=== PATIENT | female | born 1970 | race Hispanic/Latino ===

== ENCOUNTER 2023-12-02 06:33 | Day surgery (SDC) | payer OTHER, SELFPAY ==
--- NOTE | 2023-11-28 09:48 | PTCARENOTE ---
Michelle in Dr. Woody's office made aware of UCX result of beta hemolytic streptococcus, group B from 3/ that was resulted from lab [facility] and scanned.
[2023-12-02] VITALS (14 sets, daily range): BP systolic 77–142; BP diastolic 52–86; BMI 26.3
[2023-12-02 06:17] LABS: Glucose - Point of Care 104 mg/dl (70-99)
[2023-12-02 06:46] LABS: Mean Corp Hgb Conc. 33.3 g/dL (33.0-37.0); Mean Corpuscular Hgb 27.7 pg (27.0-31.0); Mean Corpuscular Volume 83.1 fL (81.0-99.0); Mean Platelet Volume 11.3 fL (7.4-10.4); Platelet Count 186 10^3/uL (130-400); Red Blood Cell Count 3.97 10^6/uL (4.20-5.40); White Blood Cell Count 3.9 10^3/uL (4.8-10.8)
[2023-12-02 06:49] LABS: APTT 26.4 Sec (23.4-35.0); INR 1.08; PT 13.8 Sec (11.4-14.6)
[2023-12-02] MEDS: NORMOSOL-R 1000 IV (06:56)
[2023-12-02 07:09] LABS: ALT (SGPT) 226 U/L (0-35); AST (SGOT) 498 U/L (14-36); Alkaline Phosphatase 101 U/L (38-126); Blood Urea Nitrogen 17 mg/dl (7-17); Calcium 9.5 mg/dl (8.4-10.2); Carbon Dioxide 24 mmol/L (22-30); Chloride 102 mmol/L (98-107); Estimated Creatinine Clearance 93 ml/min; Glucose 102 mg/dl (70-99); Potassium 4.1 mmol/L (3.5-5.1); Sodium 135 mmol/L (135-145); Total Bilirubin 0.7 mg/dl (0.2-1.3); Total Protein 6.7 g/dl (6.3-8.2); eGFR > 60.00
[2023-12-02 07:13] LABS: Urine Albumin Negative (Neg - Trace); Urine Bilirubin Negative (Negative); Urine Character Slightly Cloudy (Clear); Urine Color Yellow; Urine Glucose Negative (Negative); Urine Ketone Trace (Negative); Urine Leukocyte 2+ (Negative); Urine Nitrite Negative (Negative); Urine Occult Blood Negative (Negative); Urine Urobilinogen Negative (Neg - 1+)
[2023-12-02 07:37] LABS: Urine Red Blood Cell 0-2 /HPF (0-2)
[2023-12-02 08:06] LABS: Glucose - Point of Care 93 mg/dl (70-99)
--- NOTE | 2023-12-02 08:40 | SUR.PHASEI ---
patient with seizure disorder, last seizure 2 weeks ago - patient states ' very mild' - very sleepy, BP low - patient arousable, c/o some discomfort but quickly back to sleep, skin warm and dry, Dr Stone TT updated on assess and BP
--- NOTE | 2023-12-02 09:28 | SUR.PHASEI ---
vss, BP low but stable, Dr Stone visits ok for discharge- on discharge to [facility] patient states pain 7/10. cannot stay awake, FLACC score 0. Advised that it would not be safe to medicate at this point. patient nods and falls back to sleep
[2023-12-02] MEDS: ROXICODONE 5 MG PO (09:29)
== END 2023-12-02 09:50 | disposition home or self-care (01) ==
LOC: SDS 06:33
PROVIDERS: ATTENDING PHYSICIAN Urology
DX: N30.10 Interstitial cystitis (chronic) without hematuria (principal); N31.9 Neuromuscular dysfunction of bladder, unspecified; N39.41 Urge incontinence; N30.90 Cystitis, unspecified without hematuria
CPT/HCPCS: 52287; 52260; 80053; 81003; 81015; 82962; 85027; 85610; 85730; 87086; J0585

== ENCOUNTER 2024-06-15 06:07 | Day surgery (SDC) | payer OTHER, SELFPAY ==
[2024-06-08 10:17] VITALS: BMI 25.4
[2024-06-08 10:38] LABS: Urine Albumin Negative (Neg - Trace); Urine Bilirubin 1+ (Negative); Urine Character Clear (Clear); Urine Color Yellow; Urine Glucose Negative (Negative); Urine Ketone Trace (Negative); Urine Leukocyte Trace (Negative); Urine Nitrite Negative (Negative); Urine Occult Blood Negative (Negative); Urine Urobilinogen Negative (Neg - 1+)
[2024-06-08 10:39] LABS: % Basophils 0.7 % (0-2); % Eosinophils 4.5 % (0-6); % Immature Granulocytes 1.1 % (0-0.5); % Lymphocytes 30.2 % (20.5-51.1); % Monocytes 5.6 % (1.7-9.3); % Neutrophils 57.9 % (42.2-75.2); Absolute Eosinophils 0.2 10^3/uL (0-0.7); Absolute Immature Granulocytes 0.1 10^3/uL (0-0.05); Absolute Lymphocytes 1.4 10^3/uL (1.2-3.4); Absolute Monocytes 0.3 10^3/uL (0.1-0.6); Absolute Neutrophils 2.6 10^3/uL (1.4-6.5); Hematocrit 36.4 % (37.0-47.0); Mean Platelet Volume 11.5 fL (7.4-10.4); Nucleated Red Blood Cells % 0 %; Platelet Count 181 10^3/uL (130-400); Red Blood Cell Count 4.28 10^6/uL (4.20-5.40); White Blood Cell Count 4.5 10^3/uL (4.8-10.8)
[2024-06-08 10:46] LABS: Urine Bacteria Few (Negative); Urine Red Blood Cell 0-2 /HPF (0-2)
[2024-06-08 10:47] LABS: INR 1.11; PT 14.1 Sec (11.4-14.6)
[2024-06-08 10:47] LABS: Urine Mucus Few
[2024-06-08 11:38] LABS: Blood Urea Nitrogen 17 mg/dl (7-17); Calcium 10.1 mg/dl (8.4-10.2); Carbon Dioxide 23 mmol/L (22-30); Chloride 104 mmol/L (98-107); Estimated Creatinine Clearance 90 ml/min; Glucose 118 mg/dl (70-99); Potassium 4.9 mmol/L (3.5-5.1); Sodium 143 mmol/L (135-145); eGFR > 60.00
[2024-06-15] VITALS (10 sets, daily range): BP systolic 103–135; BP diastolic 64–87; BMI 25.4
[2024-06-15 07:41] LABS: Glucose - Point of Care 123 mg/dl (70-99)
[2024-06-15] MEDS: NORMOSOL-R/PLASMALYTE-A 1000 IV (07:44)
[2024-06-15 09:45] LABS: Glucose - Point of Care 126 mg/dl (70-99)
[2024-06-15] MEDS: DILAUDID 0.5 MG IV (09:53)
[2024-06-15] MEDS: Pyridium 200 MG PO (10:03)
[2024-06-15] MEDS: VALIUM 5 MG PO (10:05)
[2024-06-15] MEDS: ROXICODONE 5 MG PO (10:43)
== END 2024-06-15 11:20 | disposition home or self-care (01) ==
LOC: SDS 06:07
PROVIDERS: ATTENDING PHYSICIAN Urology; FAMILY PHYSICIAN Family Medicine
PROC: 3E0K8GC Introduction of Other Therapeutic Substance into Genitourinary Tract, Via Natural or Artificial Opening Endoscopic (ICD-10-PCS; 2024-06-15)
PROC: 0T7B8ZZ Dilation of Bladder, Via Natural or Artificial Opening Endoscopic (ICD-10-PCS; 2024-06-15)
DX: N30.10 Interstitial cystitis (chronic) without hematuria (principal); N39.41 Urge incontinence
CPT/HCPCS: 52260; 52287; 36415; 80048; 81003; 81015; 82962; 85025; 85610; 85730; 93005; J0585

== ENCOUNTER 2024-12-14 06:17 | Day surgery (SDC) | payer OTHER, SELFPAY ==
[2024-12-03 08:36] LABS: Urine Albumin Negative (Neg - Trace); Urine Bilirubin Negative (Negative); Urine Character Clear (Clear); Urine Color Yellow; Urine Glucose 4+ (Negative); Urine Ketone 1+ (Negative); Urine Leukocyte Negative (Negative); Urine Nitrite Negative (Negative); Urine Occult Blood Negative (Negative); Urine Specific Gravity 1.015 (<1.030); Urine Urobilinogen Negative (Neg - 1+)
[2024-12-03 08:52] LABS: % Basophils 0.7 % (0-2); % Eosinophils 3.8 % (0-6); % Immature Granulocytes 0.7 % (0-0.5); % Lymphocytes 22.4 % (20.5-51.1); % Monocytes 4.2 % (1.7-9.3); % Neutrophils 68.2 % (42.2-75.2); Absolute Basophils 0.1 10^3/uL (0-0.2); Absolute Eosinophils 0.3 10^3/uL (0-0.7); Absolute Immature Granulocytes 0.1 10^3/uL (0-0.05); Absolute Lymphocytes 1.5 10^3/uL (1.2-3.4); Absolute Monocytes 0.3 10^3/uL (0.1-0.6); Absolute Neutrophils 4.7 10^3/uL (1.4-6.5); Hematocrit 35.1 % (37.0-47.0); Hemoglobin 11.7 g/dL (12.0-16.0); Mean Corp Hgb Conc. 33.3 g/dL (33.0-37.0); Mean Corpuscular Hgb 27.3 pg (27.0-31.0); Mean Corpuscular Volume 81.8 fL (81.0-99.0); Mean Platelet Volume 11.3 fL (7.4-10.4); Nucleated Red Blood Cells % 0 %; Platelet Count 196 10^3/uL (130-400); Red Blood Cell Count 4.29 10^6/uL (4.20-5.40); Red Cell Dist. Width 13.5 % (11.5-14.5); White Blood Cell Count 6.9 10^3/uL (4.8-10.8)
[2024-12-03 09:10] LABS: Blood Urea Nitrogen 24 mg/dl (7-17); Calcium 10.4 mg/dl (8.4-10.2); Carbon Dioxide 19 mmol/L (22-30); Chloride 101 mmol/L (98-107); Glucose 255 mg/dl (70-99); Potassium 4.5 mmol/L (3.5-5.1); Sodium 136 mmol/L (135-145); eGFR > 60.00
[2024-12-03 13:38] VITALS: BMI 27.8
--- NOTE | 2024-12-04 16:11 | PTCARENOTE ---
Glucose 255, Michelle at Dr. Woody's office made aware.
[2024-12-14] VITALS (9 sets, daily range): BP systolic 88–136; BP diastolic 55–72; BMI 27.8
[2024-12-14 08:01] LABS: Glucose - Point of Care 167 mg/dl (70-99)
[2024-12-14] MEDS: NORMOSOL-R/PLASMALYTE-A 1000 IV (08:02)
[2024-12-14] MEDS: TRANSDERM-SCOP 1 PATCH TRANSDERM (08:24)
[2024-12-14 10:47] LABS: Glucose - Point of Care 227 mg/dl (70-99)
[2024-12-14] MEDS: SUBLIMAZE 50 MCG IV (11:04)
[2024-12-14] MEDS: ROXICODONE 5 MG PO (11:55)
== END 2024-12-14 12:10 | disposition home or self-care (01) ==
LOC: SDS 06:17
PROVIDERS: ATTENDING PHYSICIAN Urology; FAMILY PHYSICIAN Family Medicine
DX: N30.10 Interstitial cystitis (chronic) without hematuria (principal); N39.41 Urge incontinence
CPT/HCPCS: 52260; 52287; 36415; 80048; 81003; 82962; 85025; 93005; J0585

== ENCOUNTER 2025-08-30 06:18 | Day surgery (SDC) | payer OTHER, SELFPAY ==
[2025-08-27 09:05] LABS: Urine Character Clear (Clear)
[2025-08-27 09:11] LABS: Hematocrit 32.3 % (37.0-47.0); Hemoglobin 10.3 g/dL (12.0-16.0); Mean Corp Hgb Conc. 31.9 g/dL (33.0-37.0); Mean Corpuscular Volume 80.0 fL (81.0-99.0); Platelet Count 192 10^3/uL (130-400); Red Cell Dist. Width 14.3 % (11.5-14.5)
[2025-08-27 09:26] LABS: Urine Squamous Cell 16-20 /LPF (Few)
[2025-08-27 09:28] LABS: Urine Red Blood Cell 0-2 /HPF (0-2); Urine White Cell 0-2 /HPF (0-5)
[2025-08-27 09:55] LABS: Blood Urea Nitrogen 18 mg/dl (7-17); Calcium 9.9 mg/dl (8.4-10.2); Carbon Dioxide 23 mmol/L (22-30); Chloride 102 mmol/L (98-107); Glucose 249 mg/dl (70-99); Potassium 4.6 mmol/L (3.5-5.1); Sodium 135 mmol/L (135-145); eGFR > 60.00
[2025-08-27 13:15] VITALS: BMI 27.8
--- NOTE | 2025-08-27 13:47 | PTCARENOTE ---
Abn ECG, see prior ECG dated 06/03/23 noting prior history.
[2025-08-30] VITALS (8 sets, daily range): BP systolic 93–127; BP diastolic 52–76; BMI 27.8
[2025-08-30 12:16] LABS: Glucose - Point of Care 88 mg/dl (70-99)
[2025-08-30] MEDS: NORMOSOL-R/PLASMALYTE-A 1000 IV (12:21)
[2025-08-30 14:53] LABS: Glucose - Point of Care 121 mg/dl (70-99)
[2025-08-30] MEDS: SUBLIMAZE 25 MCG IV ×2 (15:13→15:21)
[2025-08-30] MEDS: VALIUM 5 MG PO (15:34)
== END 2025-08-30 16:22 | disposition home or self-care (01) ==
LOC: SDS 06:18
PROVIDERS: ATTENDING PHYSICIAN Urology; FAMILY PHYSICIAN Family Medicine
DX: N30.10 Interstitial cystitis (chronic) without hematuria (principal); N39.41 Urge incontinence
CPT/HCPCS: 52287; 52260; 80048; 81003; 81015; 82962; 85027; 93005; J0585